=== PATIENT | male | born 1980 | race Caucasian/White ===

== ENCOUNTER 2021-10-02 19:19 | Outpatient (REF) | payer OTHER, SELFPAY ==
[2021-10-02 21:37] LABS: BUN 16 mg/dL (7-18); CREATININE 1.1 mg/dL (0.70-1.30); Calcium 9.3 mg/dL (8.5-10.1); Calculated LDL 125 mg/dL (<100); Chloride 104 mmol/L (98-107); Cholesterol 217 mg/dL (<200); Glucose 102 mg/dL (74-106); HDL Cholesterol 34 mg/dL (40-60); Sodium 141 mmol/L (136-145); TSH (W/Ref FT4) 1.76 uIU/mL (0.36-3.74); Triglyceride 294 mg/dL (<150)
== END 2021-10-02 19:20 | disposition home or self-care (01) ==
LOC: NCHCN 19:19
PROVIDERS: PCP Nurse Practitioner Family; Visit Provider Nurse Practitioner Family
DX: F41.8 Other specified anxiety disorders (principal); F42.2 Mixed obsessional thoughts and acts; E66.8 Other obesity; Z13.220 Encounter for screening for lipoid disorders; Z00.00 Encounter for general adult medical examination without abnormal findings
CPT/HCPCS: 80048; 80061; 84443

== ENCOUNTER 2022-11-08 00:56 | Outpatient (CLI) | payer OTHER, SELFPAY ==
--- NOTE | 2022-11-08 | DI.MRI_ITS ---
Exam(s) MR CERVICAL SPINE WO EXAM: MR CERVICAL SPINE WO CLINICAL HISTORY: RADICULOPATHY CERVICAL REGION M54.12 TECHNIQUE: Multiplanar multisequence MRI of the cervical spine was performed without intravenous con trast. COMPARISON: No exams were available for comparison FINDINGS: The examination is limited due to patient motion artifact. BONES: Vertebral body heights are maintained. Intervertebral disc spaces are normal. Alignment is nor mal. Mild degenerative endplate signal changes are seen at C3-4, C5-C6 and C6-C7. CERVICAL CORD: Craniovertebral junction is unremarkable. The cervical cord is normal size and signal intensity. SOFT TISSUES: Unremarkable. C2-3: No disc herniation or bulge is identified. No significant central spinal canal or neural forami nal stenosis. C3-4: There is mild prominence of the osteophyte disc complex. No significant central spinal canal o r neural foraminal stenosis C4-5: No disc herniation or bulge is identified. No significant central spinal canal or neural forami nal stenosis C5-6: There is mild prominence of the osteophyte disc complex slightly eccentric to the right. There are hypertrophic changes of the right uncovertebral joint. No significant central spinal canal or l eft neural foraminal stenosis is seen. There is moderate right neural foraminal stenosis. C6-7: No disc herniation or bulge is identified. No significant central spinal canal stenosis or righ t neural foraminal stenosis is seen. There is uncovertebral joint hypertrophy on the left. There is mild left neural foraminal stenosis. C7-T1: No disc herniation or bulge is identified. No significant central spinal canal or neural suresh inal stenosis IMPRESSION: Degenerative changes in the cervical spine as described above. The findings do result 10 moderate ri ght C5-6 neural foraminal stenosis and mild left C6-C7 neural foraminal stenosis. DATA REPOSITORY:
== END 2022-11-08 01:16 ==
LOC: DI 00:56
PROVIDERS: PCP Nurse Practitioner Family; Visit Provider Nurse Practitioner Acute Care
DX: M54.12 Radiculopathy, cervical region (principal); M47.22 Other spondylosis with radiculopathy, cervical region; M99.81 Other biomechanical lesions of cervical region
CPT/HCPCS: 72141

== ENCOUNTER 2025-04-14 18:38 | Outpatient (REF) | payer SELFPAY ==
[2025-04-15 08:35] LABS: HBs Antibody, Quant 4.5 mIU/mL (See Note); Hepatitis B Surface Ab Negative (See Note)
[2025-04-15 12:07] LABS: Rubella IgG Ab (UVM) Positive (See Note)
[2025-04-18 12:47] LABS: TB Interpretation Negative (Negative); TB1 Ag minus Nil 0.00 IU/mL; TB2 Ag minus Nil 0.00 IU/mL
== END 2025-04-14 18:39 | disposition home or self-care (01) ==
LOC: LBO 18:38
PROVIDERS: PCP Nurse Practitioner Family; Visit Provider Nurse Practitioner Family
DX: Z02.1 Encounter for pre-employment examination (principal)
CPT/HCPCS: 36415; 86706; 86787; 86480; 86735; 86762; 86765

== ENCOUNTER 2025-07-26 15:17 | Outpatient (REF) | payer OTHER, SELFPAY ==
[2025-07-26 16:03] LABS: HCT 44.1 % (40.0-50.0); HGB 14.6 g/dL (13.5-17.5); MCH 29.1 pg (27.0-33.0); MCHC 33.1 % (32.0-36.0); MCV 88 fL (80-95); MPV 10.8 fL (8.0-11.0); Platelet Count 286 10^3/uL (130-400); RBC 5.01 10^6/uL (4.36-5.78); RDW 12.4 % (11.8-14.1); RDW-SD 40.3 fL; WBC 6.33 10^3/uL (4.4-10.8)
[2025-07-26 16:23] LABS: TSH 2.14 uIU/mL (0.55-4.78)
[2025-07-26 16:27] LABS: ALT 44 U/L (10-49); AST 29 U/L (<34); Albumin 4.1 g/dL (3.2-5.0); Alkaline Phosphatase 80 U/L (46-116); Anion Gap 10.2 mmol/L (3-11); BUN 12 mg/dL (9-23); Bilirubin, Total 0.3 mg/dL (0.2-1.2); CO2 25.8 mmol/L (20.0-31.0); Calcium 9.2 mg/dL (8.3-10.6); Chloride 106 mmol/L (98-107); Cholesterol 192 mg/dL (<200); Glucose 101 mg/dL (74-106); HDL Cholesterol 33 mg/dL (>40); Potassium 4.4 mmol/L (3.5-5.1); Sodium 142 mmol/L (136-145); Total Protein 7.0 g/dL (5.7-8.2)
[2025-07-26 16:41] LABS: Hemoglobin A1C 5.6 % (<5.7)
== END 2025-07-26 15:18 | disposition home or self-care (01) ==
LOC: NCHCN 15:17
PROVIDERS: PCP Nurse Practitioner Family; Visit Provider Nurse Practitioner Family
DX: Z00.00 Encounter for general adult medical examination without abnormal findings (principal)
CPT/HCPCS: 80053; 80061; 85027; 83036; 84443